=== PATIENT | female | born 1990 | race Caucasian/White ===

== ENCOUNTER → 2018-06-12 14:33 | Outpatient (CLI) | payer BC, SELFPAY | PROVIDERS: Referring Provider Physician Assistant Surgical; Visit Provider Physician Assistant Surgical | DX: J02.9 Acute pharyngitis, unspecified (principal) | CPT/HCPCS: 87077; 87081 ==

== ENCOUNTER → 2019-01-28 11:04 | Outpatient (CLI) | payer BC, SELFPAY | PROVIDERS: Referring Provider Nurse Practitioner Family; Visit Provider Nurse Practitioner Family | DX: J02.9 Acute pharyngitis, unspecified (principal) | CPT/HCPCS: 87070; 87077; 87186 ==

== ENCOUNTER → 2019-02-09 10:51 | Outpatient (CLI) | payer BC, SELFPAY ==
[2019-02-10 12:22] LABS: Mucous, Urine 0 SEEN /hpf (<or=2+); Red Blood Cells-Urine 0 SEEN /hpf (0-5); White Blood Cells 0 SEEN /hpf (0-5)
[2019-02-10 12:23] LABS: Color, Urine Yellow (Yellow); Glucose, Dipstick Normal (Normal); Ketone-Dipstick 5 mg/dl (Negative); Leukocyte Esterase-Dipstick Negative /ul (Negative); Nitrite-Dipstick Negative (Negative); Occult Blood-Urine Negative /ul (Negative); Protein-Dipstick 15 mg/dl (Negative); Urine Bilirubin Dipstick Negative (Negative); Urine Clarity Sl. Cloudy (Clear); Urine Urobilinogen Normal (Normal)
[2019-02-10 12:29] LABS: Bacteria 1+ /hpf (None Seen); Squamous Epithelial Cells - UA 0-5 SEEN /hpf (5-10)
== END ==
PROVIDERS: Referring Provider Physician Assistant Medical; Visit Provider Physician Assistant Medical
DX: R10.9 Unspecified abdominal pain (principal)
CPT/HCPCS: 81001; 87086

== ENCOUNTER 2019-09-17 06:12 | Emergency (ER) | payer BC, SELFPAY ==
[2019-09-17] VITALS (7 sets, daily range): BP systolic 85–161; BP diastolic 65–127; PULSE 66–86; RESP 13–18; TEMP 37; O2SAT 95–100; BMI 42.4
--- NOTE | 2019-09-17 06:19 | EKG12_ITS ---
Test Reason : CP Blood Pressure : / mmHG Vent. Rate : 085 BPM Atrial Rate : 085 BPM P-R Int : 152 ms QRS Dur : 094 ms QT Int : 370 ms P-R-T Axes : 055 027 019 degrees QTc Int : 440 ms Sinus rhythm with marked sinus arrhythmia Otherwise normal ECG Confirmed by DOMINGO CARPENTER ([id number]), industrial editor FRANCISCO JAVIER SIMMONS ([id number] on 09/22/2019 12:04:47 PM Referred By: JAMES Confirmed By:DOMINGO CARPENTER
--- NOTE | 2019-09-17 06:20 | ED.VIS.CHEST ---
History of Present Illness Informant: Patient Onset: Hours - 12 Activity at onset: Unknown Timing: Continuous Quality: Aching, Pressure, Sharp Location: Substernal - and in left upper flank (thoracic), upper back. no rad to arm, jaw, neck. Current Severity: Moderate Maximum Severity: Moderate Worsened By: Movement of Torso - sometimes. Not Worsened By: Exertion, Palpation, Breathing Relieved By: Nothing - tried taking aspirin, no other medications/treatments Associated Symptoms: Negative for: Nausea, Vomiting, Diaphoresis, Dyspnea, Cough, Fever, Lightheadedness, Palpitations Narrative: Patient has a history of GERD, but states she usually gets burning up her throat and mid chest with that and this was a little different. She became concerned and took aspirin just in case, and he notes that her grandmother of a heart attack, and her mother had a leaky valve that recently was replaced and she is in her 40s, but has had no history of PCI or bypass or known coronary disease. She has no known first-degree relatives with a history of coronary disease. She is a non-smoker and uses no cocaine. No recent long travel, no pleuritic discomfort, no leg pain or swelling. No history of DVT or PE. No recent illnesses. No contact with any known coronavirus-infected persons. <César Be - Last Filed: 09/17/19 07:08> <Marcello Lang - Last Filed: 09/17/19 08:05> Chief Complaint: Chest Pain - Past Medical History (1) GERD (gastroesophageal reflux disease) Status: Chronic (2) Asthma Status: Chronic <César Be - Last Filed: 09/17/19 07:08> Past Medical History Smoking Status: Never smoker Drugs: None <César Be - Last Filed: 09/17/19 07:08> <Marcello Lang - Last Filed: 09/17/19 08:05> - Allergies and Home Meds Allergies/Adverse Reactions: Allergies carbinoxamine [From [facility]] Allergy (Mild, Verified 09/17/19 06:19) unknown pseudoephedrine [From [facility]] Allergy (Mild, Verified 09/17/19 06:19) unknown Primary Care Physician: Raudel Jack MD [STAFF PHYSICIAN] - (call for appt) Review of Systems General: Denies: Chills, Fever, Sweats Eyes: Denies: Visual changes - bilaterally, Diplopia ENT: Denies: Bilateral ear pain, Rhinorrhea, Sore throat Cardiovascular: Reports: Chest pain. Denies: Palpitations, Heart racing Respiratory: Denies: Dyspnea, Cough, Dyspnea on exertion Gastrointestinal: Denies: Abdominal pain, Nausea, Vomiting, Diarrhea, Melena, Hematochezia Genitourinary: Denies: Dysuria, Hematuria, Frequency Musculoskeletal: Reports: Back pain. Denies: Neck pain, Swelling, Extremity Pain Skin: Denies: Rash, Wounds Neurological: Denies: Headache, Weakness, Numbness <César Be - Last Filed: 09/17/19 07:08> Physical Exam Vital Signs/Narrative: Vital Signs Temp Pulse Resp BP Pulse Ox 09/17/19 06:13 98.6 F 86 18 160/121 H 100 Inital Vital Signs reviewed: Yes General: Well nourished, Well developed, Obese, No Acute Distress Head: Normocephalic, Atraumatic Eyes: Perrl, EOMI ENT: Moist mucous membranes, No rhinorrhea Neck: Supple, Nontender, No JVD Cardiovascular: Regular rate, Regular rhythm, No murmurs, Normal S1, Normal S2 Respiratory: No distress, CTA bilaterally, Chest nontender Abdomen: Soft, Nontender, Nondistended, Normal bowel sounds Back: Nontender, Normal Inspection Extremities: Nontender, No edema. Negative for: Calf Tenderness Skin: Normal color, No rash, No Trauma Neurological: Alert, Oriented x3, Cranial nerves II-XII grossly intact, Normal Strength, Normal Sensation, Normal Gait Psychological: Normal affect, Normal Mood <César Be - Last Filed: 09/17/19 07:08> Vital Signs/Narrative: Vital Signs Temp Pulse Resp BP Pulse Ox 09/17/19 07:32 66 15 109/72 98 09/17/19 07:19 69 13 85/65 L 97 09/17/19 07:16 78 14 161/96 H 95 09/17/19 06:53 83 161/127 H 09/17/19 06:13 98.6 F 86 18 160/121 H 100 <Marcello Lang - Last Filed: 09/17/19 08:05> Diagnostic/Tx/Re-eval - Rhythm Strip Rhythm Strip: Sinus Rhythm Rate: 85 Ectopy: None - EKG Initial EKG Interpretation: Sinus Rhythm, No Acute Injury Pattern, - - Normal EKG Prior: No Prior CAMERON Risk: No Positive CAMERON Elements Score: 0 - Medical Decision Making Initially patient was given a GI cocktail, did not help her symptoms. Her EKG was normal, and she has no risk factors for heart disease with a heart score of 1 for history, assuming her troponin returns negative. Advised the patient I would give her some other medications to see if that helped while we ran blood tests and chest x-ray, when the nurse attempted to place the IV, seemingly directly related to the needlestick, she bradycardia down and passed out, and had a period of asystole for 17.6 seconds. This then recovered to sinus bradycardia at 24, and then sinus rhythm in the 80s. When she became bradycardic, she woke up. She was feeling okay, except for feeling nauseated. Testing is pending, I gave her a nitroglycerin and Bentyl, and shortly thereafter her discomfort is almost completely resolved. This could be consistent with esophageal spasm in etiology. If she has no further telemetry events or dysrhythmias, I feel she can be safely discharged home with close outpatient follow-up if her work-up is negative, as this event was a vasovagal event. Checked out to oncoming emergency physician. <César Be - Last Filed: 09/17/19 07:08> - Medical Decision Making Care of the patient was turned over to me pending labs and x-ray. Patient did have an episode where she sat up and felt somewhat dizzy. Patient blood pressure did drop. Patient was given IV fluids. Single view chest x-ray was obtained. There is no acute cardiopulmonary process. This was interpreted by the radiologist and myself. CBC, basic metabolic profile, troponin were obtained and were all within normal limits. Patient was feeling much better on reevaluation. Patient was instructed to follow-up with her primary care physician in 5 to 7 days. Patient understood and was agreeable with the plan. All questions were answered. <Marcello Lang - Last Filed: 09/17/19 08:05> ED Disposition <César Be - Last Filed: 09/17/19 07:08> <Marcello Lang - Last Filed: 09/17/19 08:05> - Plan for ED Patient: Disposition: Home or Assisted Living Diagnosis: Chest pain, unspecified, Vasovagal syncope Instructions: ED Chest Pain NonCardiac Referrals: Raudel Jack MD [STAFF PHYSICIAN] - (call for appt)
--- NOTE | 2019-09-17 06:23 | ED.RN ---
NO OLD EKGS ON FILE
[2019-09-17] MEDS: Mag Hydrox/Al Hydrox/Simeth 30 ML UDC PO (06:25)
[2019-09-17] MEDS: Dicyclomine 10 MG Capsule 20 MG PO (06:53)
[2019-09-17] MEDS: Nitroglycerin SL (ED/IMG/CATH) 0.4 MG TABLET SUBLINGUAL (06:53)
--- NOTE | 2019-09-17 06:56 | ED.RN ---
P twas getting an iv in lac. Pt eyes rolled back in head and pt went asytole on heart monitor for 17 sec. Pt then open her eyes and pt was sweaty and urinated herself. . bed layed flat.
--- NOTE | 2019-09-17 07:02 | RAD_ITS ---
STUDY: X-RAY CHEST REASON FOR EXAM: Female, 29 years old. c/o cp that started at 7 pm last night. hx gerd TECHNIQUE: Frontal view COMPARISON: None. FINDINGS: The lungs are clear and expanded. There is no demonstrated pleural abnormality. Normal size heart. Normal mediastinum and john. Normal visualized pulmonary arteries. Normal visualized aortic arch and descending thoracic aorta. Normal visualized thoracic spine. Normal visualized ribs, clavicles, and shoulders. There is no demonstrated abnormality of the visualized soft tissue structures of the upper abdomen. RAD/Chest 1 View (Portable) IMPRESSION: Normal x-ray examination of the chest. Electronically Signed: Robert Lees MD at 7:34 EDT , Service support ,
[2019-09-17 07:12] LABS: Absolute Lymphocyte Count 4.36 X10^3/uL (0.83-4.51); Absolute Neutrophil Count 4.4 X10^3/uL (2.0-7.7); Basophil# 0.05 X10^3/uL; Basophil% 0.5 % (0-1); Eosinophil# 0.41 X10^3/uL; Eosinophils% 4.1 % (0-5); Hematocrit 41.1 % (37-47); Hemoglobin 13.4 g/dL (12.0-15.0); Lymphocyte # 4.36 X10^3/ul (4.0); Lymphocyte % 43.9 % (19-41); Mean Corp Hgb Conc 32.6 g/dL (32-36); Mean Corpuscular Hgb 29.8 pg (27.0-32.0); Mean Corpuscular Volume 91.5 fL (81-99); Mean Platelet Vol. 12.2 fl (6.2-12.0); Monocyte# 0.69 X10^3/uL; Monocyte% 6.9 % (0-10); NRBC Flagged by Analyzer 0 % (0-5); Neutrophil # 4.39 X10^3/uL (2.7-7.7); Neutrophil % 44.3 % (47-70); Platelet Count 282 K/mm3 (150-450); RBC Distribution Width CV 11.9 % (11.6-14.6); RBC Distribution Width SD 39.7 fl (35.1-43.9); Red Blood Count 4.49 M/mm3 (4.2-5.4); White Blood Count 9.9 K/mm3 (4.4-11.0)
[2019-09-17] MEDS: Ondansetron 4 MG/2 ML Vial IV (07:16)
--- NOTE | 2019-09-17 07:28 | ED.RN ---
PT LYING FLAT DUE TO NAUSEA AND DIZZINESS. PT GIVEN NAUSEA MEDICATION PER PHYSICIAN ORDER. XRAY TECHS ENTERED ROOM TO TAKE PORTABLE CHEST XRAY. UPON SITTING PT UPRIGHT PT BP DECREASED. PT DENIES FURTHER NAUSEA. DR. CARSON NOTIFIED. FLUIDS GIVEN PER ORDER. WILL CONTINUE TO MONITOR.
[2019-09-17] MEDS: 0.9% Normal Saline 1,000 ML 1000 ML IV (07:30)
[2019-09-17 07:46] LABS: Anion Gap 4 (5-15); BUN 13 mg/dL (7-18); BUN/Creat Ratio 16.4 RATIO (10-20); Calcium,Total 8.4 mg/dL (8.5-10.1); Chloride 106 mmol/L (98-107); Creatinine, Serum 0.79 mg/dL (0.55-1.02); EST Glomerular Filtration Rate 92 mL/min (>60); Est Glom Filt Rate - Afr Amer 111 mL/min (>60); Estimated Creatinine Clearance 76.15 ml/min; Glucose 94 mg/dL (74-106); Potassium 3.6 mmol/L (3.5-5.1); Sodium Level 138 mmol/L (136-145)
== END 2019-09-17 08:58 | disposition home or self-care (01) ==
PROVIDERS: Emergency Provider Emergency Medicine
DX: R07.9 Chest pain, unspecified (principal); R55 Syncope and collapse; E66.9 Obesity, unspecified; J45.909 Unspecified asthma, uncomplicated; K21.9 Gastro-esophageal reflux disease without esophagitis; Z82.49 Family history of ischemic heart disease and other diseases of the circulatory system
CPT/HCPCS: 71045; 80048; 84484; 85025; 93005; 96361; 96374; 99285; J7030; A4216; J2405

== ENCOUNTER → 2019-10-03 11:43 | Outpatient (CLI) | payer BC, SELFPAY ==
[2019-09-17 06:13] VITALS: BMI 42.4
--- NOTE | 2019-10-03 11:54 | US_ITS ---
STUDY: THYROID ULTRASOUND REASON FOR EXAM: Female, 29 years old. THYROMEGALY TECHNIQUE: Ultrasound evaluation of the thyroid was performed with real-time and static neal-scale imaging. COMPARISON: None. FINDINGS: RIGHT LOBE: The right lobe of the thyroid gland measures 4.4 cm x 1.6 x 1.4 cm. There is a heterogeneous echotexture. There is a 4 mm x 4 mm x 4 mm hypoechoic solid nodule in the upper lateral aspect of the right lobe of the thyroid. LEFT LOBE: The left lobe of the thyroid gland measures 4 cm x 1.6 cm x 2.0 cm. There is a heterogeneous echotexture. There are no demonstrated solid, cystic or complex lesions. ISTHMUS: The isthmus measures 4.0 mm. The regional lymph nodes are normal. US/Thyroid IMPRESSION: Heterogeneous appearance of the thyroid. 4 mm x 4 mm x 4 mm hypoechoic solid nodule in the superior aspect of the right lobe. Electronically Signed: Bubba Iglesias, at 15:28 EDT , Service support ,
== END ==
LOC: US 11:46
PROVIDERS: PCP Family Medicine; Referring Provider Family Medicine; Visit Provider Family Medicine
DX: E01.0 Iodine-deficiency related diffuse (endemic) goiter (principal)
CPT/HCPCS: 76536

== ENCOUNTER → 2019-10-22 07:50 | Outpatient (CLI) | payer BC, SELFPAY ==
[2019-09-17 06:13] VITALS: BMI 42.4
--- NOTE | 2019-10-22 07:55 | NM_ITS ---
CLINICAL: 29-year-old female with reported history of thyroid nodularity I-123 THYROID UPTAKE and SCAN COMPARISON: Thyroid ultrasound report 10/03/2019 FINDINGS: The patient was administered a 330 uCi I-123 capsule by mouth. The 4-hour I-123 radioactive iodine thyroidal uptake was calculated to be 19.1 % (normal 5 to 25 %). The 24-hour I-123 radioactive iodine thyroidal uptake was calculated to be 40.3 % (normal 5 to 40 %). The I-123 thyroid scan demonstrates homogeneous radiopharmaceutical concentration throughout both lobes of a U -shaped thyroid gland. There are no colloidal parenchymal hypofunctioning cold nodules noted in either lobe of the thyroid gland. NM/Thyroid Uptake Single or Mult IMPRESSION: 1. UPPER LIMITS OF NORMAL 4- and 24-hour I-123 radioactive iodine thyroidal uptakes. Correlation with in vitro thyroid function studies is recommended if not previously obtained. 2. The I-123 thyroid scan is consistent with stage I nodular colloid goiter secondary to the presence of isthmus radiopharmaceutical concentration. (Rosey et al, J Nucl Med 32: 1455, 1990). If the patient demonstrates a suppressed serum TSH level, findings may represent the presence of a low-grade diffuse toxic goiter. 3. No hypofunctioning-cold nodules are identified. Electronically Signed: Nasir Saldivar DO at 22:52 EDT Tel , Service support ,
== END ==
PROVIDERS: PCP Family Medicine; Referring Provider Family Medicine; Visit Provider Family Medicine
DX: E04.1 Nontoxic single thyroid nodule (principal)
CPT/HCPCS: 78012; A9516

== ENCOUNTER → 2020-01-21 14:01 | Outpatient (CLI) | payer BC, SELFPAY ==
[2019-09-17 06:13] VITALS: BMI 42.4
== END ==
LOC: LABSPEC 14:03
PROVIDERS: PCP Family Medicine; Referring Provider Family Medicine; Visit Provider Family Medicine
DX: J02.9 Acute pharyngitis, unspecified (principal)
CPT/HCPCS: 87070; 87077

== ENCOUNTER → 2020-03-25 11:36 | Outpatient (CLI) | payer BC, SELFPAY ==
[2019-09-17 06:13] VITALS: BMI 42.4
[2020-03-25 14:12] LABS: Absolute Lymphocyte Count 1.94 X10^3/uL (0.83-4.51); Absolute Neutrophil Count 2.7 X10^3/uL (2.0-7.7); Basophil# 0.03 X10^3/uL; Basophil% 0.6 % (0-1); Eosinophils% 3.8 % (0-5); Hematocrit 40.3 % (37-47); Hemoglobin 13.2 g/dL (12.0-15.0); Lymphocyte # 1.94 X10^3/ul (4.0); Lymphocyte % 37.1 % (19-41); Mean Corp Hgb Conc 32.8 g/dL (32-36); Mean Corpuscular Hgb 30.1 pg (27.0-32.0); Mean Corpuscular Volume 91.8 fL (81-99); Mean Platelet Vol. 12.8 fl (6.2-12.0); Monocyte# 0.39 X10^3/uL; Monocyte% 7.5 % (0-10); NRBC Flagged by Analyzer 0 % (0-5); Neutrophil # 2.65 X10^3/uL (2.7-7.7); Neutrophil % 50.6 % (47-70); Platelet Count 283 K/mm3 (150-450); RBC Distribution Width CV 12.2 % (11.6-14.6); RBC Distribution Width SD 41.2 fl (35.1-43.9); Red Blood Count 4.39 M/mm3 (4.2-5.4); White Blood Count 5.2 K/mm3 (4.4-11.0)
[2020-03-25 15:07] LABS: ALB/GLOB Ratio 1.2 RATIO (0.9-2.4); AST(SGOT) 10 U/L (15-37); Alanine Aminotransfer ALT/SGPT 23 U/L (13-56); Albumin, Serum 3.6 g/dL (3.2-5.0); Alkaline Phosphatase 57 U/L (45-117); Anion Gap 8 (5-15); BUN 11 mg/dL (7-18); BUN/Creat Ratio 15.8 RATIO (10-20); Calcium,Total 8.9 mg/dL (8.5-10.1); Chloride 108 mmol/L (98-107); EST Glomerular Filtration Rate 106 mL/min (>60); Est Glom Filt Rate - Afr Amer 128 mL/min (>60); Globulin 3.1 g/dL (2.2-4.2); Glucose 83 mg/dL (74-106); Magnesium 2.1 mg/dL (1.6-2.6); Potassium 4.1 mmol/L (3.5-5.1); Protein, Total 6.7 g/dL (6.4-8.2); Sodium Level 140 mmol/L (136-145)
== END ==
LOC: MFPLAB 11:37
PROVIDERS: PCP Family Medicine; Referring Provider Family Medicine; Visit Provider Family Medicine
DX: R00.2 Palpitations (principal)
CPT/HCPCS: 36415; 80053; 83735; 84443; 85025

== ENCOUNTER → 2020-04-22 16:57 | Outpatient (CLI) | payer BC, SELFPAY ==
[2019-09-17 06:13] VITALS: BMI 42.4
== END ==
PROVIDERS: PCP Family Medicine; Referring Provider Otolaryngology; Visit Provider Otolaryngology
DX: Z11.59 Encounter for screening for other viral diseases (principal)
CPT/HCPCS: 87635; C9803; U0005; U0003

== ENCOUNTER → 2020-04-27 14:22 | Outpatient (CLI) | payer BC, SELFPAY ==
[2019-09-17 06:13] VITALS: BMI 42.4
--- NOTE | 2020-04-27 10:36 | TONS_PTH ---
PATIENT: KIRA BUSTOS LOC: [facility] U#:[id number] AGE/SX: 34/F ROOM: RE04/27/[address]: Dr. Patricio Santacruz MD : 1990 BED: DIS: SPEC #: [id number] RECD: 04/27/20 14:06 STATUS: SHAHNAZ BARRERA #: [id number] ALVARO: 04/27/20 10:[address]: Patricio Santacruz DEPT: SURGICAL PATHOLOGY RECD BY: Sandra Ernandez ENTERED: 04/28/20 08:48 SP TYPE: TONSILS OTHR DR: Dr. Raudel Jack MD [facility] Tissues: Tonsil, NOS Procedures: Surgery Specimen Level III HEADER OPERATION: Tonsillectomy PRE-OP DIAGNOSIS: Chronic tonsillitis TISSUE SUBMITTED: Tonsils, right pinned MICROSCOPIC DIAGNOSIS Bilateral tonsils, tonsillectomy: Reactive lymphoid hyperplasia, consistent with chronic tonsillitis. SJ:sophia 04/29/2020 MICROSCOPIC DESCRIPTION Slides are reviewed. GROSS DESCRIPTION Received is one container labeled with the patient's name and designated tonsils - pin on right are two tonsils that in aggregate weigh 9.7 gm. The right tonsil has a pin on it and measures 3 x 2 x 1.5 cm. The left tonsil measures 4 x 2 x 1.5 cm. Both tonsils are similar in appearance. The external surfaces are pink-solis, smooth, glistening and somewhat lobulated. Focally they are hemorrhagic, granular and bear cautery artifact. Serial cross sections through the tonsils reveal normal tonsillar architecture. Sections are submitted in two cassettes as follows: 1 - right tonsil, 2 - left tonsil. / CELESTINA:sophia 04/28/20 TC:3 CPT: 02104 x2
== END ==
LOC: LABSPEC 14:24
PROVIDERS: PCP Family Medicine; Referring Provider Otolaryngology; Visit Provider Otolaryngology
DX: J35.01 Chronic tonsillitis (principal)
CPT/HCPCS: 88304

== ENCOUNTER → 2020-10-21 12:20 | Outpatient (CLI) | payer BC, SELFPAY ==
--- NOTE | 2020-10-21 12:25 | US_ITS ---
STUDY: THYROID ULTRASOUND REASON FOR EXAM: Female, 30 years old. Thyroid nodule TECHNIQUE: Ultrasound evaluation of the thyroid was performed with real-time and static neal-scale imaging. COMPARISON: Comparison is made with prior examination 10/03/2019. FINDINGS: RIGHT LOBE: The right lobe of the thyroid gland measures 4.7 cm x 1.8 cm x 1.5 cm. There is a heterogeneous echotexture. Stable 4 mm x 3 mm x 3 mm hypoechoic predominantly cystic nodule in the upper pole. This is unchanged. LEFT LOBE: The left lobe of the thyroid gland measures 4.8 cm x 2 cm x 1.5 cm. There is a heterogeneous echotexture. There are no demonstrated solid, cystic or complex lesions. ISTHMUS: The isthmus measures 2 mm. The regional lymph nodes are normal. US/Thyroid IMPRESSION: Stable examination. Electronically Signed: Bubba Iglesias MD at 15:14 EDT , Service support ,
== END ==
PROVIDERS: PCP Family Medicine; Referring Provider Family Medicine; Visit Provider Family Medicine
DX: E04.1 Nontoxic single thyroid nodule (principal)
CPT/HCPCS: 76536

== ENCOUNTER 2021-04-26 16:33 | Outpatient (CLI) | payer BC, SELFPAY ==
[2021-04-26 18:21] LABS: Vitamin B12 325 pg/mL (211-911)
[2021-04-26 18:30] LABS: ALB/GLOB Ratio 0.9 RATIO (0.9-2.4); AST(SGOT) 15 U/L (15-37); Alanine Aminotransfer ALT/SGPT 26 U/L (13-56); Albumin, Serum 3.4 g/dL (3.2-5.0); Alkaline Phosphatase 64 U/L (45-117); Anion Gap 6 (5-15); BUN 15 mg/dL (7-18); BUN/Creat Ratio 19.9 RATIO (10-20); Calcium,Total 8.2 mg/dL (8.5-10.1); Chloride 108 mmol/L (98-107); Creatinine, Serum 0.75 mg/dL (0.55-1.02); EST Glomerular Filtration Rate 96 mL/min (>60); Est Glom Filt Rate - Afr Amer 116 mL/min (>60); Globulin 3.6 g/dL (2.2-4.2); Glucose 93 mg/dL (74-106); Potassium 3.3 mmol/L (3.5-5.1); Sodium Level 140 mmol/L (136-145); T4 Total, Thyroxin 6.2 ug/dL (4.8-13.9)
== END 2021-04-26 23:59 | disposition home or self-care (01) ==
LOC: MFPLAB 16:35
PROVIDERS: PCP Family Medicine; Referring Provider Family Medicine; Visit Provider Registered Nurse
DX: R20.0 Anesthesia of skin (principal); E66.9 Obesity, unspecified; Z68.39 Body mass index [BMI] 39.0-39.9, adult
CPT/HCPCS: 36415; 80053; 82607; 84436; 84443

== ENCOUNTER → 2021-11-17 | Outpatient (CLI) | payer BC, SELFPAY ==
[2021-11-17 18:39] LABS: hCG Titer Quant., Serum < 1 mIU/mL (1-3)
== END | disposition home or self-care (01) ==
PROVIDERS: PCP Family Medicine; Referring Provider Physician Assistant; Visit Provider Physician Assistant
DX: L73.2 Hidradenitis suppurativa (principal); L70.8 Other acne
CPT/HCPCS: 36415; 84702

== ENCOUNTER 2022-05-23 14:28 | Emergency (ER) | payer BC, SELFPAY ==
[2022-05-23 14:30] VITALS: BP 161/114; PULSE 90; RESP 18; TEMP 36.6; O2SAT 100; BMI 44.9
--- NOTE | 2022-05-23 16:04 | EDS_ITS ---
HPI History of Present Illness Chief Complaint: Back Detail of Chief Complaint: Back pain for 1 year Informant: patient Onset/Context/Timing Onset: Month(s) (12+ months) Context: Gradual Onset Chronic pain exacerbated by: Certain movements Injury: twisting and bending Timing: Continuous and Waxes and wanes Quality: Dull Location: Lumbar, Buttock (Left side) and Left Leg (Above the popliteal fossa) Current Severity: Moderate Maximum Severity: Severe Worsened by: improves with Movement and Bending Relieved by: Nothing Associated Symptoms Associated Symptoms: Radiation to Left Leg and - (No saddle paresthesia or anesthesia. No foot drop. No buckling of her knees going up or down steps.); Negative for Numbness, Tingling, Radiation to Right Leg, Fever, Abdominal Pain, Dysuria, Unable to Ambulate, Unable to Transfer, Urinary Retention, Urinary Incontinence, Constipation or Fecal Incontinence Narrative Narrative: Patient is a 32-year-old woman who has back pain. She is concerned because the pain is making her nauseous. She denies fever, chills night sweats. She denies vomiting or diarrhea. She denies dysuria, frequency, urgency or hematuria. She denies rash. There is no history of direct trauma. She has been seen by spine who recommended an MRI and raise concern for herniated disc. She denies symptoms of claudication. Prior similar symptoms: Yes Recent Illness/Hospitalization: No PFSH [facility] Medical History Asthma neck and back pain Shortness of breath Shoulder pain Home Medications albuterol sulfate 90 mcg/actuation aerosol inhaler 2 puff inhalation 4X/DAY PRN PRN wheezes 17 days #9 grams 04/23/18 [History Last Taken Unknown] hydrocodone-acetaminophen 5-325mg 5mg-325mg 1 tab PO Q6H PRN PRN Pain 3 days #10 TABLETS 05/23/22 [Rx Last Taken Unknown] Allergy/AdvReac Type Severity Reaction Status Date / Time carbinoxamine [From [facility]] Allergy Mild unknown Verified 05/23/22 14:32 [facility] Allergy Mild unknown Verified 05/23/22 14:32 Family History Mother Heart disease Kidney disease CVA (cerebral vascular accident) Father Arthritis Surgical History no surgical history no surgical history Social History (Updated 05/23/22 @ 16:[address] Cristobal Reid MD) Smoking Status: Never smoker alcohol intake: current alcohol intake frequency: holidays/special occasions only substance use type: does not use ROS ROS ED Constitutional Constitutional ED: Denies chills, fever(s) or subjective Cardiovascular Cardiovascular: Denies chest pain or palpitations Respiratory/Chest Respiratory/Chest: Denies dyspnea or dyspnea on exertion Gastrointestinal Gastrointestinal: Reports nausea; Denies abdominal pain, constipation, diarrhea or vomiting Genitourinary Genitourinary ED: Denies dysuria, hematuria or urinary frequency Musculoskeletal Musculoskeletal: Reports back pain and other Details: Detailed in the HPI narrative ; Denies arthralgias, myalgias or neck pain Integumentary Denies Abrasions or rash Neurologic Neurologic: Denies paresthesias or weakness Endocrine Endocrinology: Reports cold intolerance and other Details: Patient has had her thyroid evaluated. There was a mass. The mass was benign. ; Denies heat intolerance Hematologic/Lymphatic Hematologic/Lymphatic: Denies easy bleeding or easy bruising EXAM Physical Exam Const Vital Signs: 05/23/22 14:30 Temperature 97.9 F Temperature Source Temporal Pulse Rate 90 Respiratory Rate 18 Blood Pressure 161/114 H Blood Pressure Mean 129 Pulse Ox 100 Oxygen Delivery Method Room Air Positive well nourished, well developed and obese General Appearance ED: well developed and NAD; Negative for pallor Nutritional Appearance: obese HEENT Reports moist mucous membranes HEENT Narrative: Head is a dermatic normocephalic. Ears normal. Eyes PERRL and EOMs intact bilaterally General Eye ED: Negative for scleral icterus Neck supple and no JVD Resp normal respiratory effort Cardio regular rate and regular rhythm Back/Spine normal to inspection; Negative for no thoracic nor lumbar tenderness Back/Spine Narrative: There is pain no patient midline lumbar region. General Back: Negative for CVA tenderness Lumbar Spine / Lower Back: straight leg raise negative bilaterally Extremity normal to inspection and no clubbing, cyanosis or edema Extremity Narrative: Patient reports recent edema. She denies orthopnea. General Extremety ED: Yes edema General Extremity: edema Neuro oriented x3 and no sensory deficits noted Neuro Narrative: EHL intact bilaterally. Normal sensation of L3, L4, L5 and S1 dermatome. Gait was observed. There is no foot drop. Patient able to walk on heels and toes. Patient able to perform 1 legged squat right and left. DP and PT pulse are palpable. Sensorium / Orientation: alert Motor Exam: strength 5/5 throughout Deep Tendon Reflexes: Rt Patellar (L4): 2+, Lt Patellar (L4): 2+, Rt Ankle (S1): 2+ and Lt Ankle (S1): 2+ Deep Tendon Reflexes Back: Rt Patellar (L4): 2+, Lt Patellar (L4): 2+, Rt Ankle (S1): 2+ and Lt Ankle (S1): 2+ Plantar Reflex: Downgoing: bilateral (There is no clonus.) Psych Mood & Affect: depressed Skin no rashes or lesions noted and no wounds General Skin Exam: Negative for jaundice or pallor MDM MDM MDM Narrative Medical decision making narrative: Patient's history is consistent with in all likelihood degenerative disc disease. Based on the fact that she prefer to sit for 30 minutes versus standing and an unremarkable exam doubt acute herniated disc as a cause of her pain. Suspect this is due to morbid obesity and degenerative disc disease. Patient was informed she does not meet criteria for emergent MRI. Patient was asked what she her expectations are. Recommended follow-up with PCP for physical therapy. Recommended return visit to Dr. York at [facility] if he believes an MRI is needed. Reluctant to prescribe NSAIDs since patient has history of GERD. Since patient has had no red flag symptoms imaging was not obtained. Based on history, and a normal neurologic exam MRI is not indicated. There is no concern for urinary tract infection. In my believe this is muscular pain. History & Record Review Additional record(s) reviewed:: Prior outpatient record (Outpatient office visit) Discharge Plan Triage Chief Complaint: Back ED Provider: Cristobal Reid Dx/Rx/DC Orders Clinical Impression: Acute exacerbation of chronic low back pain, Obesity, Class III, BMI 40-49.9 (morbid obesity), Hx of gastroesophageal reflux (GERD), Elevated blood pressure reading Instructions: ED Back Pain (Acute or Chronic), ED Hypertension, To Be Confirmed Prescriptions: New hydrocodone-acetaminophen [hydrocodone-acetaminophen] 5-325 mg tablet 1 tab PO Q6H PRN PRN (Reason: Pain) 3 Days Qty: 10 0RF No Action albuterol sulfate 90 mcg/actuation HFA aerosol inhaler 2 puff INHALATION 4X/DAY PRN PRN (Reason: wheezes) 17 Days Qty: 9 Primary Care Provider: Raudel Jack Referrals: Raudel Jack MD [Primary Care Provider] - 3-5 Days Ronald York DO [Med Staff - Active Staff] - 5-7 Days Activity Restrictions/Additional Instructions: 1. Recommend follow-up with your primary care physician for blood pressure reevaluation and referral to physical therapy 2. Recommend following up with Dr. Ronald York the spine surgeon to determine if MRI is indicated. Disposition Disposition: Home, Self Care
[2022-05-23 16:32] VITALS: PULSE 76; RESP 20
== END 2022-05-23 16:32 | disposition home or self-care (01) ==
PROVIDERS: Emergency Provider Emergency Medicine; PCP Family Medicine; Visit Provider Emergency Medicine
DX: G89.29 Other chronic pain (principal); E66.01 Morbid (severe) obesity due to excess calories; Z68.42 Body mass index [BMI] 45.0-49.9, adult; M54.50 Low back pain, unspecified; K21.9 Gastro-esophageal reflux disease without esophagitis; R03.0 Elevated blood-pressure reading, without diagnosis of hypertension; J45.909 Unspecified asthma, uncomplicated; Z79.899 Other long term (current) drug therapy
CPT/HCPCS: 99282

== ENCOUNTER → 2022-07-20 | Outpatient (CLI) | payer BC, SELFPAY ==
[2022-07-20 10:47] LABS: ALB/GLOB Ratio 0.9 RATIO (0.9-2.4); AST(SGOT) 18 U/L (15-37); Alanine Aminotransfer ALT/SGPT 30 U/L (13-56); Albumin, Serum 3.3 g/dL (3.2-5.0); Alkaline Phosphatase 69 U/L (45-117); Anion Gap 5 (5-15); BUN 14 mg/dL (7-18); BUN/Creat Ratio 18.3 RATIO (10-20); Calcium,Total 8.7 mg/dL (8.5-10.1); Chloride 106 mmol/L (98-107); Creatinine, Serum 0.77 mg/dL (0.55-1.02); EST Glomerular Filtration Rate 93 mL/min (>60); Est Glom Filt Rate - Afr Amer 113 mL/min (>60); Free T3 2.5 pg/mL (2.18-3.98); Globulin 3.5 g/dL (2.2-4.2); Glucose 89 mg/dL (74-106); Potassium 3.7 mmol/L (3.5-5.1); Protein, Total 6.8 g/dL (6.4-8.2); Sodium Level 137 mmol/L (136-145); T4 Free Direct 0.84 ng/dL (0.76-1.46); Thyroid Stim Hormone (TSH) 4.37 uIU/mL (0.358-3.74)
[2022-07-21 17:07] LABS: Anti-Thyroglobulin AB < 1.0 IU/mL (0.0-0.9); Thyroglobulin, Serum Qt. 34.1 ng/mL (1.5-38.5); Thyroid Peroxidase AB 52 IU/mL (0-34)
== END | disposition home or self-care (01) ==
LOC: MFPLAB 08:49
PROVIDERS: PCP Family Medicine; Visit Provider Family Medicine
DX: R63.5 Abnormal weight gain (principal)
CPT/HCPCS: 36415; 80053; 82533; 84432; 84439; 84443; 84481; 86376; 86800

== ENCOUNTER → 2022-09-13 | Outpatient (CLI) | payer BC, SELFPAY ==
[2022-09-13 13:02] LABS: T4 Free Direct 0.94 ng/dL (0.76-1.46)
== END | disposition home or self-care (01) ==
LOC: MTLAB 09:21
PROVIDERS: PCP Family Medicine; Referring Provider Family Medicine; Visit Provider Family Medicine
DX: E03.9 Hypothyroidism, unspecified (principal)
CPT/HCPCS: 36415; 84439; 84443

== ENCOUNTER → 2022-11-02 | Outpatient (CLI) | payer BC, SELFPAY ==
[2022-11-02 12:50] LABS: T4 Free Direct 1.01 ng/dL (0.76-1.46)
== END | disposition home or self-care (01) ==
LOC: MFPLAB 10:17
PROVIDERS: PCP Family Medicine; Visit Provider Family Medicine
DX: E03.9 Hypothyroidism, unspecified (principal)
CPT/HCPCS: 36415; 84439; 84443

== ENCOUNTER 2023-07-17 21:27 | Emergency (ER) | payer BC, SELFPAY ==
[2023-07-17 21:29] VITALS: BP 137/108; PULSE 143; RESP 16; TEMP 36.4; O2SAT 99; BMI 48.4
== END 2023-07-17 22:00 | disposition left against medical advice (07) ==
LOC: ED 22:05
DX: R11.2 Nausea with vomiting, unspecified (principal); R19.7 Diarrhea, unspecified

== ENCOUNTER 2023-07-18 10:28 | Emergency (ER) | payer BC, SELFPAY ==
[2023-07-18 10:30] VITALS: BP 145/72; PULSE 121; RESP 18; TEMP 36.4; O2SAT 100; BMI 47.0
--- NOTE | 2023-07-18 11:20 | EDS_ITS ---
HPI HPI - GI History of Present Illness Chief Complaint: Nausea/Vomiting/Diarrhea Informant: patient Narrative Narrative: 33-year-old female presenting to the emergency room with vomiting and concern for dehydration. Patient states that yesterday she was at work when she began to experience sweating and some abdominal discomfort. She states that she felt like she was can have diarrhea. She had 1 episode of diarrhea that she describe s as green and watery. She states he has had multiple episodes of emesis yesterday. She began to experience a frontal headache. She notes a burning- like epigastric pain which she contributes to not being able to really eat or drink anything. No further diarrhea. No fevers though intermittently has sweats and flushing sensation. The patient denies any rashes. No bad food exposures or travel. Patient states that she started her first injection of Wegovy 2 weeks ago. She denies any abdominal bloating or distention. No prior abdominal surgeries. No history of biliary or pancreatic disease. Patient notes dry mouth. Tachycardia particularly with standing and decreased urination. She does note that she was able to tolerate a piece of toast this morning. PFSH [facility] Medical History neck and back pain Asthma Shoulder pain Shortness of breath Home Medications ?Medication ?Instructions ?Recorded ?Last Taken ?Type loratadine 10 mg tablet (Claritin) 10 mg PO DAILY 05/26/22 Unknown History levothyroxine 25 mcg tablet 25 mcg PO 07/18/23 Unknown History levothyroxine 50 mcg tablet 50 mcg PO DAILY 07/18/23 Unknown History ondansetron 4 mg disintegrating 4 mg PO Q6H PRN PRN Nausea #12 tabs 07/18/23 Unknown Rx tablet Allergy/AdvReac Type Severity Reaction Status Date / Time carbinoxamine (From [facility]) Allergy Mild unknown Verified 07/18/23 10:29 pseudoephedrine (From [facility]) Allergy Mild unknown Verified 07/18/23 10:29 Family History Mother Heart disease Kidney disease CVA (cerebral vascular accident) Father Arthritis Social History Smoking Status: Never smoker alcohol intake: current alcohol intake frequency: holidays/special occasions only substance use type: does not use ROS ROS ED Constitutional Constitutional ED: Reports fever(s), subjective and sweats; Denies chills or weight loss Eyes Eyes: Denies change in vision or diplopia ENT ENT ED: Denies ear pain, rhinorrhea or sore throat Cardiovascular Cardiovascular: Denies chest pain, orthopnea, palpitations or racing heartbeat Respiratory/Chest Respiratory/Chest: Denies cough, dyspnea or orthopnea Gastrointestinal Gastrointestinal: Reports abdominal pain, diarrhea, nausea and vomiting Genitourinary Genitourinary ED: Denies dysuria, hematuria or urinary frequency Musculoskeletal Musculoskeletal: Denies arthralgias or myalgias Integumentary Denies abscess or rash Neurologic Neurologic: Denies headache(s) or weakness Psychiatric Psychiatric: Denies anxiety, depression, suicidal ideation or suicidal thoughts Endocrine Endocrinology: Denies polydipsia, polyphagia or polyuria Allergic/Immunologic Allergic/Immunologic ED: Denies mouth swelling, tongue swelling or urticaria EXAM Physical Exam Const Vital Signs: 07/18/23 10:30 07/18/23 10:30 07/18/23 12:00 Temperature 97.5 F L 97.4 F L Temperature Source Temporal Temporal Pulse Rate 121 H 121 H 102 H Respiratory Rate 18 18 16 Blood Pressure 145/72 H 145/72 H 162/110 H Blood Pressure Mean 96 96 127 Pulse Ox 100 100 96 Oxygen Delivery Method Room Air Room Air Room Air 07/18/23 13:00 07/18/23 13:17 Temperature 97.8 F 97.6 F L Temperature Source Temporal Pulse Rate 106 H 106 H Respiratory Rate 18 18 Blood Pressure 150/92 H 150/92 H Blood Pressure Mean 111 111 Pulse Ox 99 99 Oxygen Delivery Method Room Air Positive well nourished, well developed and obese General Appearance ED: well developed Nutritional Appearance: obese HEENT Reports normocephalic, head/scalp atraumatic and dry mucous membranes Mouth ED: Yes dry mucous membranes Mouth: dry mucous membranes Eyes PERRL and EOMs intact bilaterally Neck no lymphadenopathy, supple and no JVD Resp normal respiratory effort and clear to auscultation bilaterally Cardio regular rate, regular rhythm and no murmurs Rate: tachycardic GI normal to inspection, nondistended, normoactive bowel sounds and non-tender Palpation: soft Back/Spine no CVA tenderness and normal ROM Extremity normal to inspection General Extremety ED: Negative for edema General Extremity: Negative for edema Neuro oriented x3 and CN's II-XII intact bilaterally Sensorium / Orientation: alert Motor Exam: strength 5/5 throughout Psych mental status grossly normal Mood & Affect: Negative for depressed or tearful Skin no rashes or lesions noted and no wounds MDM MDM MDM Narrative Medical decision making narrative: Differential diagnosis includes but not limited to bowel obstruction medication reaction gastritis gastroenteritis biliary colic pancreatitis electrolyte disturbance dehydration. Basic blood work was obtained. This showed a potassium of 3.1 which is not unexpected with her vomiting. test was negative normal liver and lipase. Patient received 2 L of IV fluids and Zofran. She received oral potassium. She will be discharged home with Zofran and continued oral hydration. History & Record Review Discussion w/independent historian: Patient Lab Data Attestation: I reviewed the patient's lab results. Labs: Laboratory Results - last 24 hr 07/18/23 10:50 WBC 6.7 RBC 4.75 Hgb 14.1 Hct 42.4 MCV 89.3 MCH 29.7 MCHC 33.3 RDW Std Deviation 40.0 RDW Coeff of Fanny 12.2 Plt Count 242 MPV 12.4 H Immature Gran % (Auto) 0.600 Neut % (Auto) 83.1 H Lymph % (Auto) 10.9 L [place] % (Auto) 4.8 Eos % (Auto) 0.3 Baso % (Auto) 0.3 Absolute Neuts (auto) 5.6 Absolute Lymphs (auto) 0.73 L Nucleated RBC % 0 Sodium 135 L Potassium 3.1 L Chloride 101 Carbon Dioxide 27.0 Anion Gap 7 BUN 11 Creatinine 0.88 Estim Creat Clear Calc 102.88 Est GFR (MDRD) Af Amer 96 Est GFR (MDRD) Non-Af 79 BUN/Creatinine Ratio 12.5 Glucose 102 Calcium 8.8 Total Bilirubin 0.60 Direct Bilirubin 0.13 AST 12 L ALT 20 Alkaline Phosphatase 65 Total Protein 7.5 Albumin 3.8 Globulin 3.7 Lipase 16 Serum , Qual NEGATIVE Discharge Plan Triage Chief Complaint: Nausea/Vomiting/Diarrhea Other Complaint: Abd Pain Headache ED Provider: Jose Martin Killian Dx/Rx/DC Orders Clinical Impression: Vomiting and diarrhea, Acute hypokalemia, Dehydration Instructions: ED Dehydration (Adult), ED Vomit Diarrhea Nonspec Adult Prescriptions: New ondansetron 4 mg tablet,disintegrating 4 mg PO Q6H PRN PRN (Reason: Nausea) Qty: 12 0RF No Action loratadine [Claritin] 10 mg tablet 10 mg PO DAILY levothyroxine 25 mcg tablet 25 mcg PO levothyroxine 50 mcg tablet 50 mcg PO DAILY Primary Care Provider: Charley Spivey Referrals: Charley Spivey MD [Primary Care Provider] - As Needed Print Language: Indonesian Disposition Disposition: Home, Self Care Discharge Date/Time: 07/18/23 13:20
[2023-07-18 11:23] LABS: Absolute Lymphocyte Count 0.73 X10^3/uL (0.83-4.51); Absolute Neutrophil Count 5.6 X10^3/uL (2.0-7.7); Basophil# 0.02 X10^3/uL; Basophil% 0.3 % (0-1); Eosinophil# 0.02 X10^3/uL; Eosinophils% 0.3 % (0-5); Hematocrit 42.4 % (37-47); Hemoglobin 14.1 g/dL (12.0-15.0); Lymphocyte # 0.73 X10^3/ul (0.83-4.51); Lymphocyte % 10.9 % (19-41); Mean Corp Hgb Conc 33.3 g/dL (32-36); Mean Corpuscular Hgb 29.7 pg (27.0-32.0); Mean Corpuscular Volume 89.3 fL (81-99); Mean Platelet Vol. 12.4 fl (6.2-12.0); Monocyte# 0.32 X10^3/uL; Monocyte% 4.8 % (0-10); NRBC Flagged by Analyzer 0 % (0-5); Neutrophil # 5.56 X10^3/uL (2.7-7.7); Neutrophil % 83.1 % (47-70); Platelet Count 242 K/mm3 (150-450); RBC Distribution Width CV 12.2 % (11.6-14.6); Red Blood Count 4.75 M/mm3 (4.2-5.4); White Blood Count 6.7 K/mm3 (4.4-11.0)
[2023-07-18] MEDS: 0.9% Normal Saline (1000mL) 1,000 ML 1000 ML IV ×2 (11:23→12:01)
[2023-07-18] MEDS: Ondansetron 4 MG/2 ML Vial IV (11:23)
[2023-07-18 11:40] LABS: Internal QC Validated? YES +Cl - CLEAR BKGD; Pregnancy, Serum, hCG Quali. NEGATIVE Negative
[2023-07-18 11:47] LABS: AST(SGOT) 12 U/L (15-37); Alanine Aminotransfer ALT/SGPT 20 U/L (13-56); Albumin, Serum 3.8 g/dL (3.2-5.0); Alkaline Phosphatase 65 U/L (45-117); Anion Gap 7 (5-15); BUN 11 mg/dL (7-18); BUN/Creat Ratio 12.5 RATIO (10-20); Bilirubin, Direct 0.13 mg/dL (0.00-0.30); Calcium,Total 8.8 mg/dL (8.5-10.1); Chloride 101 mmol/L (98-107); Creatinine, Serum 0.88 mg/dL (0.55-1.02); EST Glomerular Filtration Rate 79 mL/min (>60); Est Glom Filt Rate - Afr Amer 96 mL/min (>60); Estimated Creatinine Clearance 102.88 ml/min; Globulin 3.7 g/dL (2.2-4.2); Glucose 102 mg/dL (74-106); Lipase 16 U/L (13-75); Potassium 3.1 mmol/L (3.5-5.1); Protein, Total 7.5 g/dL (6.4-8.2); Sodium Level 135 mmol/L (136-145)
[2023-07-18] MEDS: Potassium Chloride Oral Tablet 20 MEQ 40 MEQ PO (11:59)
[2023-07-18 12:00] VITALS: BP 162/110; PULSE 102; RESP 16; TEMP 36.3; O2SAT 96
[2023-07-18 13:00] VITALS: BP 150/92; PULSE 106; RESP 18; TEMP 36.6; O2SAT 99
[2023-07-18 13:17] VITALS: BP 150/92; PULSE 106; RESP 18; TEMP 36.4; O2SAT 99
== END 2023-07-18 13:20 | disposition home or self-care (01) ==
PROVIDERS: Emergency Provider Emergency Medicine; PCP Family Medicine; Visit Provider Emergency Medicine
DX: R19.7 Diarrhea, unspecified (principal); R51.9 Headache, unspecified; R10.13 Epigastric pain; E87.6 Hypokalemia; R11.2 Nausea with vomiting, unspecified; E86.0 Dehydration
CPT/HCPCS: 80048; 80076; 83690; 84703; 85025; 96361; 96374; 99283; J7030; A4216; J2405

== ENCOUNTER → 2023-08-22 | Outpatient (CLI) | payer BC, SELFPAY ==
[2023-08-22 17:55] LABS: Potassium 3.7 mmol/L (3.5-5.1); T4 Free Direct 0.91 ng/dL (0.76-1.46); Thyroid Stim Hormone (TSH) 1.75 uIU/mL (0.358-3.74)
== END | disposition home or self-care (01) ==
LOC: MFPLAB 15:55
PROVIDERS: PCP Family Medicine; Visit Provider Family Medicine
DX: E03.9 Hypothyroidism, unspecified (principal); E87.6 Hypokalemia
CPT/HCPCS: 36415; 84132; 84439; 84443